=== PATIENT | female | born 1955 | race Caucasian/White ===

== ENCOUNTER 2017-12-03 15:32 | Emergency (ER) | payer SELFPAY ==
[2017-12-03 15:37] VITALS: BP 121/81; PULSE 69; RESP 16; TEMP 97.7; O2SAT 98
[2017-12-03] MEDS ORDERED: PROPARACAINE 0.5% 15 ML OPHT DROP ONE (16:12)
[2017-12-03] MEDS ORDERED: FLUORESCEIN SODIUM 1 MG STRIP OP ONE (16:12)
[2017-12-03] MEDS ORDERED: OFLOXACIN 0.3% SOLN PREPACK OPHT.BTL TAKEHOME ONE (16:45)
--- NOTE | 2017-12-03 16:47 | EDPHY ---
H & P Stated Complaint: R eye irritated x 1 wk;thinks she has something in there Time Seen by Provider: 12/03/17 16:28 HPI/ROS: CHIEF COMPLAINT: Painful I HISTORY OF PRESENT ILLNESS: The patient is a 62-year-old healthy female who complains of right eye pain and erythema for the last few days. 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 It is been irritated ever since. Yesterday she flushed it aggressively 20 times. She continues to have pain. No vision changes. No fevers. No rash. REVIEW OF SYSTEMS: Constitutional: denies: chills, fever, recent illness, recent injury EENTM: See HPI denies: blurred vision, double vision, nose congestion Respiratory: denies: cough, shortness of breath Cardiac: denies: chest pain, irregular heart rate, lightheadedness, palpitations Gastrointestinal/Abdominal: denies: abdominal pain, diarrhea, nausea, vomiting, blood streaked stools Genitourinary: denies: dysuria, frequency, hematuria, pain Musculoskeletal: denies: joint pain, muscle pain Skin: denies: lesions, rash, jaundice, bruising Neurological: denies: headache, numbness, paresthesia, tingling, dizziness, weakness Hematologic/Lymphatic: denies: blood clots, easy bleeding, easy bruising Immunologic/allergic: denies: HIV/AIDS, transplant EXAM: GENERAL: Well-appearing, well-nourished and in no acute distress. HEAD: Atraumatic, normocephalic. EYES: Pupils equal round and reactive to light, extraocular movements intact, sclera anicteric, conjunctiva mildly inflamed on the nasal aspect of the right eye. Examined with fluorescein and under slit lamp. The patient has 3 small ulcerations to the medial aspect of her cornea at the 3 o'clock. They do not appear dendritic. No visible foreign body or abrasion. Adjacent inflamed conjunctiva with mild edema. ENT: TMs normal no evidence of zoster, nares patent, oropharynx clear without exudates. Moist mucous membranes. NECK: Normal range of motion, supple without lymphadenopathy or JVD. LUNGS: Breath sounds clear to auscultation bilaterally and equal. No wheezes rales or rhonchi. HEART: Regular rate and rhythm without murmurs, rubs or gallops. ABDOMEN: Soft, nontender, normoactive bowel sounds. No guarding, no rebound. No masses appreciated. BACK: No CVA tenderness, no spinal tenderness, step-offs or deformities EXTREMITIES: Normal range of motion, no pitting or edema. No clubbing or cyanosis. NEUROLOGICAL: Cranial nerves II through XII grossly intact. Normal speech, normal gait. 5/5 strength, normal movement in all extremities, normal sensation PSYCH: Normal mood, normal affect. SKIN: Warm, dry, normal turgor, no visible rashes or lesions. No zoster Source: Patient Exam Limitations: No limitations - Personal History Current Tetanus Diphtheria and Acellular Pertussis (TDAP): Unsure Tetanus Vaccine Date: 12 YEARS - Medical/Surgical History Hx Asthma: No Hx Chronic Respiratory Disease: No Hx Diabetes: No Hx Cardiac Disease: No Hx Renal Disease: No Hx Cirrhosis: No Other PMH: none - Family History Significant Family History: No pertinent family hx - Social History Smoking Status: Never smoked Alcohol Use: Sober Drug Use: None Constitutional: Initial Vital Signs Temperature (C) 36.5 C 12/03/17 15:34 Heart Rate 69 12/03/17 15:34 Respiratory Rate 16 12/03/17 15:34 Blood Pressure 121/81 H 12/03/17 15:34 O2 Sat (%) 98 12/03/17 15:34 O2 Delivery Mode Room Air Allergies/Adverse Reactions: No Known Allergies Allergy (Verified 12/03/17 15:34) Home Medications: Medication Instructions Recorded NO HOME MEDS 10/22/10 Medical Decision Making ED Course/Re-evaluation: The patient has 3 small corneal ulcerations. I suspect they are from a biologic foreign body sustained several days ago. They do not see any evidence of zoster but warned her about this. I will start her on antibiotic drops and have her follow up with Ophthalmology. She understands and agrees with this plan. We also discussed indications for returning here sooner. Differential Diagnosis: Partial list of the Differential diagnosis considered include but were not limited to; corneal abrasion, ulceration, foreign body, conjunctivitis, iritis and although unlikely based on the history and physical exam, I also considered herpes zoster, rupture, cellulitis. I discussed these differential diagnoses and the plan with the patient as well as the usual and expected course. The patient understands that the diagnosis is provisional and that in medicine we are not always correct and that further workup is often warranted. Usual and customary warnings were given. All of the patient's questions were answered. The patient was instructed to return to the emergency department should the symptoms at all worsen or return, otherwise to followup with the physician as we discussed. - Data Points Medications Given: Discontinued Medications Ofloxacin (Ocuflox 0.3% Opht Drops Prepack) 1 btl TAKEHOME EDNOW ONE Stop: 12/03/17 16:46 Last Admin: 12/03/17 16:59 Dose: 1 btl Departure - Departure Disposition: Home, Routine, Self-Care Clinical Impression: Corneal ulceration Qualifiers: Laterality: right Qualified Code(s): H16.001 - Unspecified corneal ulcer, right eye Condition: Fair Instructions: Ofloxacin (Into the eye), Corneal Ulcer (ED) Additional Instructions: 2 drops into the affected eye every 4 hr until symptoms resolve. Referrals: MARY PITT [Primary Care Provider] - As per Instructions Jerad Davidson MD [Medical Doctor] - 2-3 days, call for appt.
== END 2017-12-03 16:58 | disposition home or self-care (01) ==
DX: H16.001 Unspecified corneal ulcer, right eye (principal)